=== PATIENT | female | born 1930 | race Caucasian/White ===

== ENCOUNTER 2017-02-19 12:36 | Inpatient (IN) | payer MEDICARE, BC ==
--- NOTE | ~2017-02-19 | CN ---
Consultation Report [facility] [address] [place]. [address] NAME: ALENA SHIRLEY : 30 STATUS : DIS IN PAT#: [id number] AGE: 86 ADM/REG DATE : 02/19/17 MR#: [id number] REPORT SERV DATE: 02/22/17 DICTATED BY: JIM BADILLO DATE: 02/22/17 REPORT STATUS : Draft TRANSCRIBED BY: MODL DATE: 02/22/17 CONSULT DATE OF CONSULTATION: This lady has a history of known diverticulosis. She presented with acute onset of abdominal pain. She was noted to have a white count of 13,000. CT showed small intramural and mesenteric abscesses. She was seen by Surgery. They placed her on antibiotics. Serial labs have showed the white count has gone from 13,000 to 11,900. She has been started on a liquid diet. On exam, she looks comfortable. Her abdomen is quite soft and nontender. ASSESSMENT: Sigmoid diverticulitis. Has some small fluid collection around the sigmoid colon but improving. No abscess that needs to be drained. PLAN: Agree with management and plan per Surgery and Internal Medicine. MG/KE Jim Badillo M.D. / [id number] CC: Aaron Del Castillo Jr, MD Christine Parker, M.D.
--- NOTE | ~2017-02-19 | CN ---
Consultation Report [facility] [address] [place]. [address] NAME: ALENA SHIRLEY : 30 STATUS : ADM IN [facility]#: [id number] AGE: 86 ADM/REG DATE : 02/19/17 MR#: [id number] REPORT SERV DATE: 02/20/17 DICTATED BY: VIVIEN JASSO DATE: 02/19/17 REPORT STATUS : Draft TRANSCRIBED BY: MODL DATE: 02/19/17 CONSULTATION NOTE DATE OF CONSULTATION: 02/19/2017 REASON FOR CONSULT: Evaluation of diverticulitis. CHIEF COMPLAINT: Lower abdominal pain. HISTORY OF PRESENT ILLNESS: This is an 86-year-old female with five-month history of low- grade abdominal pain which began last Friday and has slowly worsened over the ensuing five days. Due to the nature of the pain, she presented to the emergency department for evaluation. She has been afebrile at home and reports that though she normally has a bowel movement every day, she has had constipation recently over the last couple of weeks, which is roughly the time that pain began. She denies any vomiting or emesis or blood per rectum. There had been no skin changes or jaundice. She had a colonoscopy roughly five years ago, which she reports findings of a single polyp and has not been asked to return. On presentation to the emergency department, the patient's temperature was 97.6 and her vital signs were stable. She was found to have a white blood cell count of 13.1 and slightly elevated creatinine of 1.56 with a mild metabolic alkalosis and bicarb of 22,000. Lactate was 0.7 and it appears that the patient does have labs consistent with urinary tract infection. CT scan of the abdomen and pelvis were obtained. No more significant among other things for multiple small intramural and mesenteric abscesses. There was no identifiable free air. The uterus was surgically absent. She was being admitted to the hospitalist service for antibiotic administration and General Surgery was consulted. REVIEW OF SYSTEMS: Negative except as per HPI. PAST MEDICAL HISTORY: 1. Hypertension. 2. Chronic kidney disease, the patient does not know stage. 3. History of stroke within the last year. 4. Hypothyroidism. PAST SURGICAL HISTORY: 1. Open cholecystectomy. 2. Laparoscopic appendectomy. 3. Hysterectomy and bilateral salpingo-oophorectomy. ALLERGIES: 1. CODEINE. 2. OXYCODONE. 3. IBUPROFEN. Consultation Report [facility] [address] [place]. [address] NAME: ALENA SHIRLEY : 30 STATUS : ADM IN PAT#: [id number] AGE: 86 ADM/REG DATE : 02/19/17 MR#: [id number] REPORT SERV DATE: 02/20/17 DICTATED BY: VIVIEN JASSO DATE: 02/19/17 REPORT STATUS : Draft TRANSCRIBED BY: KE DATE: 02/19/17 MEDICATIONS: Reviewed in the admission reconciliation and consist of: 1. Tylenol. 2. Cholecalciferol. 3. Plavix. 4. Colestipol. 5. Vitamin B12. 6. Lasix. 7. Lansoprazole. 8. Levothyroxine. 9. Losartan. 10.Metoprolol. 11.Multivitamin. 12.Mcdade-3. 13.Simvastatin. FAMILY HISTORY: Noncontributory. SOCIAL HISTORY: The patient is x2 and lives at home with her adult daughter. She has four children. She does not smoke and is a former use of alcohol in her "younger days." She denies any illicit drug use. PHYSICAL EXAMINATION: VITAL SIGNS: Temperature 97.6, heart rate 80, respirations 14, blood pressure 140/80, SpO2 of 97% on room air. GENERAL APPEARANCE: She appears to be her stated age of [age] years old and is moderately obese. She is in no distress, is accompanied by her daughter. NEUROLOGIC: Reveals the patient is alert and oriented x3. She does have some weakness on her right side and occasional slurring of her speech, which she attributes to residual effects of her recent stroke. HEAD, EYES, EARS, NOSE, AND THROAT: Sclerae are anicteric and extraocular muscles are grossly intact. There are no facial lesions or facial droop. Cranial nerves 2 through 12 are grossly intact. Oropharynx is pink and dry. Hearing is grossly normal for age. NECK: Examination of the neck reveals no cervical lymphadenopathy or thyromegaly. Trachea is midline. CHEST: Respirations are nonlabored and there were no audible wheezes. CARDIOVASCULAR: Heart rate is regular. She has good distal perfusion. ABDOMEN: Soft, nondistended, and mildly obese. She has some tenderness on deep palpation along the bilateral lower quadrants without rebound or guarding. EXTREMITIES: Examination of the extremities reveals mild pitting edema in bilateral lower extremities with full range of motion. There is no clubbing or cyanosis. PSYCHIATRIC: Appropriate mood and affect with normal speech patterns. LABORATORY STUDIES: Significant as per history of present illness. Consultation Report [place] [address] [place]. [address] NAME: ALENA SHIRLEY : 30 STATUS : ADM IN PAT#: [id number] AGE: 86 ADM/REG DATE : 02/19/17 MR#: [id number] REPORT SERV DATE: 02/20/17 DICTATED BY: VIVIEN JASSO DATE: 02/19/17 REPORT STATUS : Draft TRANSCRIBED BY: MODL DATE: 02/19/17 RADIOLOGY STUDIES: As per history of present illness. ASSESSMENT AND PLAN: This is an 86-year-old female with severe diverticulitis, Hinchey classification 2. We would recommend initial medical management with n.p.o. status and IV antibiotic administration with IV fluids. We will monitor abdominal exam for any signs of worsening, however, any surgical intervention would require Lillie's procedure and end colostomy. We will continue to monitor her labs and vital sign curves. She is admitted to the hospitalist for treatment of her additional comorbidities and we will gladly follow along. Thank you for the consult. DICTATED BY: Jessee Medrano MD [facility]/KE Vivien Jasso MD / [id number] CC: Aaron Del Castillo Jr, MD Christine Parker, M.D.
--- NOTE | ~2017-02-19 | HP ---
History And Physical [facility] [id number] [place]. [address] NAME: ALENA SHIRLEY : 30 STATUS : REG ER PAT#: [id number] AGE: 86 ADM/REG DATE : 02/19/17 MR#: [id number] REPORT SERV DATE: 02/19/17 DICTATED BY: JUDITH MEADE DATE: 02/19/17 REPORT STATUS : Draft TRANSCRIBED BY: MODL DATE: 02/19/17 DATE OF ADMISSION: 02/19/2017 HISTORY OF PRESENT ILLNESS: This is a very pleasant 86-year-old female, who presented to [facility] complaining of abdominal pain, nausea. The patient was complaining of left lower quadrant abdominal pain. Recently, she had constipation, but she said in general she does not have much constipation. She has history of irritable bowel syndrome in the past. She was afebrile. No vomiting, but was nauseous, and hurting in the lower abdomen. REVIEW OF SYSTEMS: All 14-point review of systems done and negative. No chest pain. No shortness of breath. No fever. No rash. No headaches. All 14-point review of systems done and negative, except what is stated in the history of present illness. PAST MEDICAL HISTORY: Known for history of hypertension; chronic kidney disease; as well as history of stroke in 01/2016 to the left paraventricular area, it was a small stroke; history of UTI in the past; chronic kidney disease, stage 3. The patient reported that she had slurred speech as a result of stroke, but her right-sided weakness is still there, but better than it was. PAST SURGICAL HISTORY: Also includes appendectomy, hysterectomy, bilateral total knee replacements, cataract surgery, lumbar spine surgery, left breast biopsy, and cholecystectomy; they all were done long time ago, not in this hospital. The patient denies any history of diabetes. No history of coronary artery disease. SOCIAL HISTORY: No tobacco. No alcohol use. She lives with her daughter. She used to work as an clerk general office. FAMILY HISTORY: Mother at age of 82 with heart problems, mainly congestive heart failure. Father with a heart attack at the age of 45. One sister with a stroke and heart disease. HOME MEDICATIONS: Include Tylenol 1300 mg twice a day; vitamin D 1000 units daily; Plavix 75 mg a day; colestipol 1 g p.o. daily; vitamin B12, 1000 mcg daily; furosemide 20 mg daily; Prevacid 30 mg daily; Synthroid 100 mcg daily; losartan 100 mg daily; metoprolol succinate 25 daily; Centrum tablets vitamins one tablet daily; Bradford-3 fatty acids 1000 mg daily; simvastatin 10 mg daily. PHYSICAL EXAMINATION: GENERAL: Well-nourished, well-developed female, not in acute distress, resting quietly. VITAL SIGNS: Blood pressure 140/80, temperature 97.6, heart rate 88, respiratory rate of 14, oxygen saturation 97% on room air. HEENT: Head; atraumatic, normocephalic. Conjunctivae clear. Pupils are equal and reactive to light and accommodation. Extraocular muscles are intact. NECK: Supple. Trachea is midline. No supraclavicular or cervical lymphadenopathy. History And Physical [address] [address] NAME: ALENA SHIRLEY : 30 STATUS : REG ER PAT#: [id number] AGE: 86 ADM/REG DATE : 02/19/17 MR#: [id number] REPORT SERV DATE: 02/19/17 DICTATED BY: JUDITH MEADE DATE: 02/19/17 REPORT STATUS : Draft TRANSCRIBED BY: KE DATE: 02/19/17 LUNGS: Diminished breath sounds bilaterally. Decreased respiratory effort. CARDIOVASCULAR SYSTEM: Regular rate and rhythm. Point of maximal impulse not displaced. ABDOMEN: Soft. There is tenderness to palpation in the lower quadrant, more in the left lower quadrant, but also there is suprapubic area tenderness and the right lower quadrant. There is no guarding, no rebound. Soft abdomen. Positive normoactive bowel sounds. EXTREMITIES: No clubbing, cyanosis, or edema. SKIN: Normal color, slightly decreased turgor. PSYCHIATRIC: Normal mood and affect. LABORATORY RESULTS: Sodium 145, potassium 4.1, chloride 111, carbon dioxide 22, BUN 23, creatinine 1.56, blood sugar 97. White count 13.1, hemoglobin 11.6, hematocrit 34.7, and platelet count 209. UA showed small amount of leukocyte esterase, positive nitrites, 1 red blood cell, and 21 white blood cells, with many bacteria. DIAGNOSTIC DATA: CT of the abdomen and pelvis on 02/19/2017, showed severe acute diverticulitis involving the distal sigmoid colon near the rectosigmoid junction with several small collections of fluid that are poorly organized at this point, but may form into small abscesses. There is no drainable collection at this time. There is tethering of an adjacent small bowel loop and inflammation extending toward the posterior dome of the urinary bladder and the vaginal cuff, status post hysterectomy. No gas within the bladder to suggest colovesical fistula at this time. Close followup recommended. Lactic acid level was 0.7. Chest x-ray: Poor evaluation of the left lung base due to under penetrated technique and overlying soft tissue attenuation. There are low lung volumes with what appears to be at least mild bibasilar and right perihilar atelectasis. ASSESSMENT AND PLAN: 1. This is a very pleasant 86-year-old female who presented with acute diverticulitis, very severe in nature. 2. Leukocytosis secondary to acute diverticulitis. 3. Nausea secondary to acute diverticulitis. 4. Chronic kidney disease, stage 3, with creatinine being at the baseline. 5. Mild urinary tract infection. We will admit the patient to telemetry bed. I already spoke with General Surgeon, Dr. Jasso, safety instruction police officer, who will see the patient in consultation and he will evaluate the CT scan and decide if she will need any intervention. I spoke with radiologist, Dr. Parham; he thinks that there is no abscess formed, so we will start on intravenous antibiotics, Levaquin and Flagyl. We will give her gentle fluid hydration and we will give her reasonable control for pain as well as control for nausea, and we will monitor her closely. Regarding her urinary tract infection, it very mild and it will be taken care with the same antibiotic such as the Levaquin and Flagyl. We will put her on clear liquid diet and we will monitor her closely. Also, Dr. Johansen, her schedule checker will be consulted. History And Physical [address] [place]. [address] NAME: ALENA SHIRLEY : 30 STATUS : REG ER PAT#: [id number] AGE: 86 ADM/REG DATE : 02/19/17 MR#: [id number] REPORT SERV DATE: 02/19/17 DICTATED BY: JUDITH MEADE DATE: 02/19/17 REPORT STATUS : Draft TRANSCRIBED BY: MODL DATE: 02/19/17 MG/MODL Judith Meade M.D. / [id number] CC: Mara Uriostegui M.D.
--- NOTE | ~2017-02-19 | DS ---
Discharge Summary [place] [id number] [facility] [place]. [address] NAME: ALENA SHIRLEY : 30 STATUS : DIS IN PAT#: [id number] AGE: 86 ADM/REG DATE : 02/19/17 MR#: [id number] REPORT SERV DATE: 02/22/17 DICTATED BY: JR. DEL CASTILLO WILLIAM JOHN DATE: 02/22/17 REPORT STATUS : Draft TRANSCRIBED BY: KE DATE: 02/22/17 ADMISSION DATE: 02/19/2017 DISCHARGE DATE: 02/22/2017 INTERNAL MEDICINE DISCHARGE SUMMARY DISCHARGE DIAGNOSES: Include 1. Acute sigmoid diverticulitis. 2. Nausea and vomiting secondary to diverticulitis. 3. Abdominal pain secondary to diverticulitis. 4. Chronic kidney disease, stage III with a baseline creatinine of 1.5. 5. Escherichia coli urinary tract infection, sensitive to Levaquin. OPERATIONS, PROCEDURES, AND TREATMENTS: Operations, procedures, and treatments include 1. Chest x-ray done 02/19/2017, which showed poor evaluation of the left lung base due to underpenetration and overlying soft tissue attenuation. There were low lung volumes with what appeared to be at least mild bibasilar and right perihilar atelectasis. 2. CT of the abdomen and pelvis done 02/19/2017, which showed severe acute diverticulitis involving the distal sigmoid colon near the rectosigmoid junction with several small collections of fluid that were poorly visualized. There was no drainable collection. There was tethering of the adjacent small bowel loop and inflammation extending toward the posterior dome of the urinary bladder and the vaginal cuff, status post hysterectomy. There is no gas within the bladder to suggest a colovesicular fistula. CONSULTING PHYSICIANS: Include Dr. Johansen of Gastroenterology and Dr. Jasso of General Surgery. DISCHARGE MEDICATIONS: Include 1. Vitamin B12 1000 mcg orally daily. 2. Vitamin D 1000 units daily. 3. Levaquin 750 mg orally daily for seven days. 4. Synthroid 100 mcg orally daily. 5. Losartan 100 mg orally daily. 6. Metoprolol succinate 25 mg at bedtime. 7. Fish oil 1000 mg daily. 8. Zocor 10 mg orally daily. 9. Flagyl 500 mg every eight hours for seven days. 10.Multivitamin tablet orally daily. 11.Plavix 75 mg orally daily. 12.Lasix 20 mg orally daily. 13.Colestipol 1 g orally daily. 14.Prevacid 30 mg orally daily. HOSPITAL COURSE: The patient is a very pleasant 86-year-old female, who presented to [facility] emergency room with abdominal pain and nausea on 02/19/2017. The pain was mostly in the left lower quadrant. The patient said she had constipation which is unusual for her. Discharge Summary [place] [address] [place]. [address] NAME: ALENA SHIRLEY : 30 STATUS : DIS IN PAT#: [id number] AGE: 86 ADM/REG DATE : 02/19/17 MR#: [id number] REPORT SERV DATE: 02/22/17 DICTATED BY: JR. DEL CASTILLO WILLIAM JOHN DATE: 02/22/17 REPORT STATUS : Draft TRANSCRIBED BY: KE DATE: 02/22/17 Initial exam showed temperature 97.6, blood pressure 140/80, heart rate 88, and respiratory rate 14. Abdominal exam showed the abdomen to be soft, tender to palpation in the left lower quadrant and suprapubic area with normoactive bowel sounds and no peritoneal signs. Initial laboratory was significant for a white count of 13.1, BUN of 23, and creatinine of 1.6. Urinalysis did show 21 white blood cells per high-powered field. CT of the abdomen and pelvis as detailed above. The patient is admitted to [address] [place] [address]. She had urine culture done which eventually grew Escherichia coli which was sensitive to fluoroquinolones. She was seen in consultation by General Surgery, Dr. Jasso, who felt that the patient should be treated with antibiotics and bowel rest. The patient recovered quickly and she was started on clear liquid diet by hospital day #2 when she was transitioned to a full liquid diet on hospital day #3. Her antibiotics were switched to oral form on hospital day #3. The patient tolerated this and was ambulating without difficulty without pain. On hospital day #4, her diet will be switched to a regular diet and if this is tolerated and if General Surgery okays to discharge, the patient will be discharged home today on 02/22/2017, in good condition. She will follow up with her primary care provider, Dr. Mara Uriostegui in one week; follow up with Dr. Johansne of Gastroenterology in four weeks; and follow with Dr. Jasso per his wishes. Followup issues include 1. Follow up with providers as above. This discharge took less than 30 minutes for patient encounter, coordination of care, and documentation. [place]/KE Aaron Del Castillo Jr, MD / [id number] CC: Aaron Del Castillo Jr, MD Christine Parker, M.D.
[~2017-02-19 12:36] MED LIST: ACTONEL PO; ASAB PO; ASAEC PO; CALTRAT600 PO; CENTRUM PO; CLINDA150 PO; COLESTID1 GM PO; COZAAR100 MG PO; CYANO1000T PO; DCN100 PO; FISH OIL1200 MG PO; FLEX PO; L20 PO; LEVOXYL75 MCG PO; LOP25 PO; MULTIPLE VIT PO; PREV15 PO; SYN1 PO; TOPXL25 PO; TOPXL50 PO; TYLENOL ARTH650 MG PO; ULTRAM50 PO; VITAMIN D1000 UNI1 PO; ZOCOR10 PO
[2017-02-19 14:53] LABS: ASCORBIC ACID (UR NOT ORDER) 40 (NEG); BILIRUBIN, URINE NEGATIVE (NEG); ER URINALYSIS TAT 0 Hrs 28 Mins; KETONE, URINE NEGATIVE (NEG); LEUKOCYTE ESTERASE(NOT OR SMALL (NEG); NITRITE (URINE) POS (NEG); WBC (NOT ORDERED) (RFLEX) 21 (0-5)
[2017-02-19 15:58] LABS: BASOPHILS 0.2 %; BASOPHILS ABSOLUTE 0.03 10/3/uL (0.0-0.16); EOSINOPHILS 1.1 %; EOSINOPHILS ABSOLUTE 0.14 10/3/uL (0.0-0.53); ER CBC TAT 0 Hrs 08 Mins; HEMATOCRIT 34.7 % (36.0-48.0); HEMOGLOBIN 11.6 g/dL (12.0-16.0); IMMATURE GRANULOCYTES 0.4 %; IMMATURE GRANULOCYTES ABSOLUTE 0.05 10/3/uL (0.0-0.11); LYMPHOCYTES 11.7 %; LYMPHOCYTES ABSOLUTE 1.54 10/3/uL (0.67-4.30); MEAN CORPUS HGB CONC 33.4 g/dL (32.0-36.0); MEAN CORPUSCULAR HEMOGLOB 31.2 pg (26.0-34.0); MEAN CORPUSCULAR VOLUME 93.3 fL (80-100); MEAN PLATELET VOLUME 10.1 fL (9.2-13.0); MONOCYTES 9.9 %; NEUTROPHILS 76.7 %; NEUTROPHILS ABSOLUTE 10.06 10/3/uL (2.02-8.40); PLATELET COUNT 209 10/3/uL (150-400); RBC DISTRIBUTION WIDTH 13.6 % (12.0-16.0); RED CELL COUNT 3.72 10/6/uL (4.0-5.6); WHITE BLOOD CELLS 13.1 10/3/uL (4.5-10.5)
[2017-02-19 16:00] LABS: MANUAL DIFF NO %
[2017-02-19 16:13] LABS: A/G RATIO 0.7 (0.7-1.9); ALKALINE PHOSPHATASE 67 U/L (45-117); BUN (BLOOD UREA NITROGEN) 23 MG/DL (6-23); CALCIUM, SERUM 8.4 MG/DL (8.5-10.4); CHLORIDE, SERUM 111 MMOL/L (96-112); CO2 (CARBON DIOXIDE) 22 MMOL/L (24-34); CREATININE 1.56 MG/DL (0.55-1.02); GFR AFRICAN AMERICAN 35 ML/MIN (>=60); GFR NON AFRICAN AMERICAN 30 ML/MIN (>=60); GLOBULIN 4.2 G/DL (2.5-4.1); POTASSIUM, SERUM 4.1 MMOL/L (3.5-5.3); SGOT(AST) 10 U/L (5-40); SGPT(ALT) 14 U/L (5-65); SODIUM, SERUM 145 MMOL/L (135-148); TOTAL BILIRUBIN 0.6 MG/DL (0-1.2)
[2017-02-19 16:14] LABS: ALBUMIN 2.8 G/DL (3.5-5.0); GLUCOSE, SERUM 97 MG/DL (60-99)
[2017-02-19 16:16] LABS: LACTATE 0.7 MMOL/L (0.3-2.4)
[2017-02-19] MEDS ORDERED: PLAVIX PO (17:15)
[2017-02-19] MEDS ORDERED: COLESTIPOL1 GM PO (17:16)
[2017-02-19] MEDS ORDERED: L20 PO (17:16)
[2017-02-19] MEDS ORDERED: PREV30 PO (17:17)
[2017-02-19] MEDS ORDERED: FISH-EPA1000 MG PO (17:17)
[2017-02-19] MEDS ORDERED: 8 HOUR650 MG PO (17:18)
[2017-02-20 05:17] LABS: BASOPHILS 0.2 %; BASOPHILS ABSOLUTE 0.03 10/3/uL (0.0-0.16); EOSINOPHILS 0.6 %; HEMATOCRIT 36.9 % (36.0-48.0); HEMOGLOBIN 12.5 g/dL (12.0-16.0); IMMATURE GRANULOCYTES 0.6 %; IMMATURE GRANULOCYTES ABSOLUTE 0.09 10/3/uL (0.0-0.11); LYMPHOCYTES 13.2 %; LYMPHOCYTES ABSOLUTE 2.06 10/3/uL (0.67-4.30); MEAN CORPUS HGB CONC 33.9 g/dL (32.0-36.0); MEAN CORPUSCULAR HEMOGLOB 31.7 pg (26.0-34.0); MEAN CORPUSCULAR VOLUME 93.7 fL (80-100); MEAN PLATELET VOLUME 10.5 fL (9.2-13.0); MONOCYTES 7.1 %; MONOCYTES ABSOLUTE 1.11 10/3/uL (0.21-1.20); NEUTROPHILS 78.3 %; NEUTROPHILS ABSOLUTE 12.22 10/3/uL (2.02-8.40); PLATELET COUNT 247 10/3/uL (150-400); RBC DISTRIBUTION WIDTH 13.5 % (12.0-16.0); RED CELL COUNT 3.94 10/6/uL (4.0-5.6); WHITE BLOOD CELLS 15.6 10/3/uL (4.5-10.5)
[2017-02-20 05:28] LABS: MANUAL DIFF NO %
[2017-02-20 05:39] LABS: A/G RATIO 0.6 (0.7-1.9); ALBUMIN 2.7 G/DL (3.5-5.0); ALKALINE PHOSPHATASE 76 U/L (45-117); BUN (BLOOD UREA NITROGEN) 21 MG/DL (6-23); CALCIUM, SERUM 8.7 MG/DL (8.5-10.4); CHLORIDE, SERUM 110 MMOL/L (96-112); CO2 (CARBON DIOXIDE) 20 MMOL/L (24-34); CREATININE 1.62 MG/DL (0.55-1.02); GFR AFRICAN AMERICAN 33 ML/MIN (>=60); GFR NON AFRICAN AMERICAN 28 ML/MIN (>=60); GLOBULIN 4.6 G/DL (2.5-4.1); GLUCOSE, SERUM 89 MG/DL (60-99); POTASSIUM, SERUM 4.3 MMOL/L (3.5-5.3); SGOT(AST) 13 U/L (5-40); SGPT(ALT) 13 U/L (5-65); SODIUM, SERUM 142 MMOL/L (135-148); TOTAL BILIRUBIN 0.7 MG/DL (0-1.2); TOTAL PROTEIN 7.3 G/DL (6.0-8.5)
[2017-02-21 05:27] LABS: BASOPHILS 0.2 %; BASOPHILS ABSOLUTE 0.03 10/3/uL (0.0-0.16); EOSINOPHILS 0.7 %; HEMATOCRIT 34.5 % (36.0-48.0); HEMOGLOBIN 11.4 g/dL (12.0-16.0); IMMATURE GRANULOCYTES 1.1 %; IMMATURE GRANULOCYTES ABSOLUTE 0.16 10/3/uL (0.0-0.11); LYMPHOCYTES 13.2 %; LYMPHOCYTES ABSOLUTE 1.87 10/3/uL (0.67-4.30); MEAN CORPUSCULAR HEMOGLOB 31.1 pg (26.0-34.0); MEAN PLATELET VOLUME 10.4 fL (9.2-13.0); MONOCYTES 8.3 %; MONOCYTES ABSOLUTE 1.18 10/3/uL (0.21-1.20); NEUTROPHILS 76.5 %; NEUTROPHILS ABSOLUTE 10.86 10/3/uL (2.02-8.40); PLATELET COUNT 226 10/3/uL (150-400); RBC DISTRIBUTION WIDTH 13.3 % (12.0-16.0); RED CELL COUNT 3.67 10/6/uL (4.0-5.6); WHITE BLOOD CELLS 14.2 10/3/uL (4.5-10.5)
[2017-02-21 05:30] LABS: MANUAL DIFF NO %
[2017-02-21 05:35] LABS: CALCIUM, SERUM 8.3 MG/DL (8.5-10.4); CHLORIDE, SERUM 110 MMOL/L (96-112); CO2 (CARBON DIOXIDE) 22 MMOL/L (24-34); CREATININE 1.44 MG/DL (0.55-1.02); GFR AFRICAN AMERICAN 38 ML/MIN (>=60); GFR NON AFRICAN AMERICAN 33 ML/MIN (>=60); GLUCOSE, SERUM 97 MG/DL (60-99); SODIUM, SERUM 141 MMOL/L (135-148)
[2017-02-21 05:36] LABS: BUN (BLOOD UREA NITROGEN) 17 MG/DL (6-23)
[2017-02-22 04:46] LABS: BASOPHILS 0.3 %; BASOPHILS ABSOLUTE 0.04 10/3/uL (0.0-0.16); EOSINOPHILS 2.4 %; EOSINOPHILS ABSOLUTE 0.29 10/3/uL (0.0-0.53); HEMATOCRIT 33.8 % (36.0-48.0); IMMATURE GRANULOCYTES 1.8 %; IMMATURE GRANULOCYTES ABSOLUTE 0.21 10/3/uL (0.0-0.11); LYMPHOCYTES 13.4 %; MEAN CORPUS HGB CONC 32.5 g/dL (32.0-36.0); MEAN CORPUSCULAR HEMOGLOB 30.2 pg (26.0-34.0); MEAN CORPUSCULAR VOLUME 92.9 fL (80-100); MEAN PLATELET VOLUME 10.1 fL (9.2-13.0); MONOCYTES ABSOLUTE 0.96 10/3/uL (0.21-1.20); NEUTROPHILS 74.1 %; NEUTROPHILS ABSOLUTE 8.83 10/3/uL (2.02-8.40); PLATELET COUNT 221 10/3/uL (150-400); RBC DISTRIBUTION WIDTH 13.8 % (12.0-16.0); RED CELL COUNT 3.64 10/6/uL (4.0-5.6); WHITE BLOOD CELLS 11.9 10/3/uL (4.5-10.5)
[2017-02-22 04:47] LABS: MANUAL DIFF NO %
[2017-02-22 04:56] LABS: BUN (BLOOD UREA NITROGEN) 16 MG/DL (6-23); CALCIUM, SERUM 8.5 MG/DL (8.5-10.4); CHLORIDE, SERUM 114 MMOL/L (96-112); CO2 (CARBON DIOXIDE) 21 MMOL/L (24-34); CREATININE 1.38 MG/DL (0.55-1.02); GFR AFRICAN AMERICAN 40 ML/MIN (>=60); GFR NON AFRICAN AMERICAN 35 ML/MIN (>=60); GLUCOSE, SERUM 100 MG/DL (60-99); POTASSIUM, SERUM 4.1 MMOL/L (3.5-5.3); SODIUM, SERUM 145 MMOL/L (135-148)
[2017-02-22] MEDS ORDERED: FLAG500TAB PO (09:30)
[2017-02-22] MEDS ORDERED: LEVAQUIN750 MG PO (09:30)
[2017-05-12] MEDS ORDERED: 8 HOUR650 MG PO (21:42)
[2017-05-12] MEDS ORDERED: COLESTID1 GM PO (21:44)
[2017-05-12] MEDS ORDERED: PLAVIX PO (21:44)
[2017-05-12] MEDS ORDERED: VITAMIN B PO (21:45)
[2017-05-12] MEDS ORDERED: PREV30 PO (21:45)
[2017-05-12] MEDS ORDERED: SYN1 PO (21:46)
[2017-05-12] MEDS ORDERED: CENTRUM PO (21:46)
[2017-05-12] MEDS ORDERED: ZOCOR10 PO (21:46)
[2017-05-12] MEDS ORDERED: COZAAR100 MG PO (21:46)
[2017-05-12] MEDS ORDERED: TOPXL25 PO (21:46)
[2017-06-21] MEDS ORDERED: LOVENOX40 SC (16:40)
[2017-06-21] MEDS ORDERED: PLAVIX PO (16:41)
[2017-06-21] MEDS ORDERED: LIPOTRIAD1 CAP PO (16:41)
[2017-06-21] MEDS ORDERED: LEVAQ250 PO (16:42)
[2017-06-21] MEDS ORDERED: LEVOTHYROXIN100 MCG PO (16:43)
[2017-06-21] MEDS ORDERED: 8 HOUR650 MG PO (16:44)
[2017-06-21] MEDS ORDERED: NEUR300 PO (16:45)
[2017-06-21] MEDS ORDERED: TOPXL25 PO (16:46)
[2017-06-21] MEDS ORDERED: SODBICAR10 PO (16:46)
[2017-06-21] MEDS ORDERED: CEFT2 PO (16:47)
[2017-06-21] MEDS ORDERED: ZOFRAN ODT4 MG PO (16:48)
[2017-06-21] MEDS ORDERED: CENTRUM PO (16:48)
[2017-06-21] MEDS ORDERED: PREV30 PO (16:48)
[2017-06-21] MEDS ORDERED: COZ25 PO (16:48)
[2017-06-21] MEDS ORDERED: ZOCOR10 PO (16:49)
[2017-06-21] MEDS ORDERED: COLESTIPOL1 GM PO (16:49)
[2017-06-21] MEDS ORDERED: NORCO1 TA1 PO (16:50)
[2017-06-21] MEDS ORDERED: PROBIOTIC PO (16:51)
[2017-06-21] MEDS ORDERED: PRILOSEC40 MG PO (16:51)
[2017-06-26] MEDS ORDERED: PCET PO (11:36)
== END 2017-02-22 13:12 | disposition home or self-care (01) | DRG 392 ==
LOC: ER 12:36 → 5NO 19:47
PROVIDERS: Emergency Medicine; Internal Medicine
DX: K57.12 Diverticulitis of small intestine without perforation or abscess without bleeding (principal); I69.351 Hemiplegia and hemiparesis following cerebral infarction affecting right dominant side; N39.0 Urinary tract infection, site not specified; N18.3 Chronic kidney disease, stage 3 (moderate); E03.9 Hypothyroidism, unspecified; Z90.49 Acquired absence of other specified parts of digestive tract; Z90.710 Acquired absence of both cervix and uterus; Z88.6 Allergy status to analgesic agent; Z79.02 Long term (current) use of antithrombotics/antiplatelets; I12.9 Hypertensive chronic kidney disease with stage 1 through stage 4 chronic kidney disease, or unspecified chronic kidney disease; Z96.653 Presence of artificial knee joint, bilateral; B96.20 Unspecified Escherichia coli [E. coli] as the cause of diseases classified elsewhere
CPT/HCPCS: 71010; 74177; 80048; 80053; 81001; 83036; 83605; 83735; 84443; 85025; 85027; 87040; 87077; 87086; 87186; 93005; 96365; 96367; 96375; 99285; A9270-GY; J1956; J2405